=== PATIENT | male | born 1975 | race Hispanic/Latino ===

== ENCOUNTER 2018-04-18 17:46 | Emergency (ER) | payer MEDICAID ==
[2018-04-18] MEDS ORDERED: LIDOCAINE HCL 1% 20 ML VIAL ONE (18:33)
[2018-04-18] MEDS ORDERED: SODIUM CHLORIDE 0.9% 100 ML IV ONE ×2 (19:00→19:44)
[2018-04-18] MEDS ORDERED: CEFAZOLIN SODIUM 1 GM VIAL ONE ×2 (19:01→19:45)
== END 2018-04-18 20:56 | disposition home or self-care (01) ==
LOC: EDH 17:46
DX: S62.632A Displaced fracture of distal phalanx of right middle finger, initial encounter for closed fracture (principal); S61.302A Unspecified open wound of right middle finger with damage to nail, initial encounter; Z72.0 Tobacco use; W23.0XXA Caught, crushed, jammed, or pinched between moving objects, initial encounter; Y93.89 Activity, other specified; Y92.098 Other place in other non-institutional residence as the place of occurrence of the external cause; Y99.8 Other external cause status
CPT/HCPCS: 11730; 73130; 96365; 99284; J0690 ×2

== ENCOUNTER 2020-09-15 13:34 | Emergency (ER) | payer MEDICAID ==
[2020-09-15] MEDS ORDERED: KETOROLAC TROMETHAMINE 30MG/ML ONE (14:03)
[2020-09-15] MEDS ORDERED: HYDROCODONE/ACETAMINOPHEN 5/325 MG TAB ONE (14:04)
== END 2020-09-15 15:17 | disposition home or self-care (01) ==
LOC: EDH 13:34
DX: S63.591A Other specified sprain of right wrist, initial encounter (principal); M19.90 Unspecified osteoarthritis, unspecified site; Z72.0 Tobacco use; W23.0XXA Caught, crushed, jammed, or pinched between moving objects, initial encounter; Y99.0 Civilian activity done for income or pay; Y92.89 Other specified places as the place of occurrence of the external cause
CPT/HCPCS: 73110; 96372; 99283; J1885

== ENCOUNTER 2022-02-11 15:32 | Emergency (ER) | payer MEDICAID ==
[2022-02-11] MEDS ORDERED: KETOROLAC 30MG VIAL (30MG/ML) IVP ONE (16:30)
[2022-02-11 16:59] VITALS: BP 109/60
== END 2022-02-11 17:18 | disposition home or self-care (01) ==
LOC: EDH 15:32
DX: S70.12XA Contusion of left thigh, initial encounter (principal); S60.221A Contusion of right hand, initial encounter; S60.222A Contusion of left hand, initial encounter; S60.052A Contusion of left little finger without damage to nail, initial encounter; M19.90 Unspecified osteoarthritis, unspecified site; W05.1XXA Fall from non-moving nonmotorized scooter, initial encounter; Y93.55 Activity, bike riding; Y92.89 Other specified places as the place of occurrence of the external cause; Y99.8 Other external cause status
CPT/HCPCS: 99284; 96374; 73130 ×2; 73502; 73552; J1885

== ENCOUNTER 2022-06-15 17:10 | Emergency (ER) | payer MEDICAID ==
[~2022-06-15] VITALS: Ht 160 cm; Wt 81.6 kg
[2022-06-15 17:13] VITALS: BP 127/103
[2022-06-15] MEDS ORDERED: AMOX875T2 PO (17:46)
[2022-06-15] MEDS ORDERED: SULF1TAB42 PO (17:46)
== END 2022-06-15 18:00 | disposition home or self-care (01) ==
LOC: EDH 17:10
DX: L02.416 Cutaneous abscess of left lower limb (principal); M19.90 Unspecified osteoarthritis, unspecified site
CPT/HCPCS: 10060